=== PATIENT | male | born 1985 | race Caucasian/White ===

== ENCOUNTER 2016-09-27 19:35 | Emergency (ER) | payer MEDICAID ==
[~2016-09-27] VITALS: Ht 180.3 cm; Wt 73.4 kg
[2016-09-27 19:41] VITALS: BP 133/79
[2016-09-27] MEDS ORDERED: IBUPROFEN 200 MG TABLET ONE (20:22)
[2016-09-27] MEDS ORDERED: IBUPROFEN 200 MG TABLET PO ONE (20:30)
[2016-09-27] MEDS ORDERED: AMOXICILLIN 500 MG CAPSULE PO ONE (20:30)
[2016-09-28] MEDS ORDERED: ARIP2TAB PO (03:36)
[2016-09-28] MEDS ORDERED: OXCA150T3 PO (03:36)
== END 2016-09-27 20:47 | disposition home or self-care (01) ==
LOC: ED 20:40
DX: K08.89 Other specified disorders of teeth and supporting structures (principal); F20.9 Schizophrenia, unspecified; J02.9 Acute pharyngitis, unspecified
CPT/HCPCS: 99283

== ENCOUNTER 2016-09-28 00:25 | Observation (INO) | payer MEDICAID ==
[~2016-09-28] VITALS: Ht 180.3 cm; Wt 63.2 kg
[2016-09-28 02:01] LABS: DAU SCREEN DISCLAIMER
[2016-09-28 02:14] LABS: BLOOD UREA NITROGEN 19 mg/dL (7-18)
[2016-09-28 02:19] LABS: ACETAMINOPHEN < 2 mcg/mL (10-30)
[2016-09-28] MEDS ORDERED: OXCA150T3 PO (03:36)
[2016-09-28] MEDS ORDERED: ARIP2TAB PO (03:36)
[2016-09-28] MEDS ORDERED: ACETAMINOPHEN 325 MG TABLET PO PRN ×2 (06:00→16:30)
[2016-09-28] MEDS ORDERED: TEMAZEPAM 15 MG CAPSULE PO PRN (06:00)
[2016-09-28] MEDS ORDERED: LORazepam 1MG TABLET PO PRN ×2 (06:00→16:30)
[2016-09-28 22:15] VITALS: BP 104/62
== END 2016-09-28 22:37 | disposition home or self-care (01) ==
LOC: ED 01:09 → EDIP 03:55 → UNDODISOB 23:45
PROVIDERS: ADMIT Internal Medicine; ATTEND Internal Medicine
DX: R45.851 Suicidal ideations (principal); F31.9 Bipolar disorder, unspecified; F17.210 Nicotine dependence, cigarettes, uncomplicated; F20.9 Schizophrenia, unspecified
CPT/HCPCS: 36415; 80048; 80307; 80329; 82040; 85025; 99285; G0378; G0480

== ENCOUNTER 2016-09-29 10:54 | Inpatient (IN) | payer MEDICAID ==
[~2016-09-29] VITALS: Ht 180.3 cm; Wt 72.4 kg
[~2016-09-29 10:54] MED LIST: ARIP2TAB PO; OXCA150T3 PO
[2016-09-29 11:48] LABS: DAU SCREEN DISCLAIMER
[2016-09-29 12:10] LABS: BLOOD UREA NITROGEN 16 mg/dL (7-18)
[2016-09-29 12:11] LABS: ACETAMINOPHEN < 2 mcg/mL (10-30)
[2016-09-29] MEDS ORDERED: ACETAMINOPHEN 325 MG TABLET PO PRN (13:30)
[2016-09-29] MEDS ORDERED: GUAIFENESIN/DM 200-20MG, 10ML UDC PO PRN (13:30)
[2016-09-29] MEDS ORDERED: ONDANSETRON ODT 4 MG PO PRN (13:30)
[2016-09-29] MEDS ORDERED: ALBUTEROL SULFATE 2.5MG/0.5ML NPPB PRN (13:30)
[2016-09-29] MEDS ORDERED: BISACODYL 10 MG SUPP PR PRN (13:30)
[2016-09-29] MEDS ORDERED: DOCUSATE 100 MG CAPSULE PO PRN (13:30)
[2016-09-29] MEDS ORDERED: NICOTINE 14MG/24 HR PATCH.TD24 ONE (15:13)
[2016-09-29] MEDS: NICOTINE 14MG/24 HR PATCH.TD24 TD SCH (15:17)
[2016-09-30 07:38] VITALS: BP 104/72
[2016-09-30] MEDS: NICOTINE 14MG/24 HR PATCH.TD24 TD SCH (13:30)
[2016-09-30 19:46] VITALS: BP 120/77
== END 2016-09-30 20:05 | DRG 885 ==
LOC: ED 11:39 → EDIP 12:54 → OBSVTOIN 13:03 → 3E 20:50
PROVIDERS: ADMIT Internal Medicine; ATTEND Internal Medicine
DX: F31.9 Bipolar disorder, unspecified (principal); R45.851 Suicidal ideations; F17.210 Nicotine dependence, cigarettes, uncomplicated; F12.90 Cannabis use, unspecified, uncomplicated; Z88.0 Allergy status to penicillin; Z79.899 Other long term (current) drug therapy
CPT/HCPCS: 36415; 80048; 80307; 80329; 82040; 85025; 99285; G0378; G0480

== ENCOUNTER 2016-10-09 11:27 | Observation (INO) | payer MEDICAID ==
[~2016-10-09] VITALS: Ht 182.9 cm; Wt 72.3 kg
[2016-10-09 12:17] LABS: HEMATOCRIT 47.8 % (39.2-51.8); HEMOGLOBIN 15.9 g/dL (13.7-18.0)
[2016-10-09 12:29] LABS: ASPARTATE AMINO TRANSFERASE 22 U/L (15-37); BLOOD UREA NITROGEN 20 mg/dL (7-18)
[2016-10-09 12:32] LABS: ACETAMINOPHEN < 2 mcg/mL (10-30)
[2016-10-09 13:02] LABS: DAU SCREEN DISCLAIMER
[2016-10-09] MEDS ORDERED: NICOTINE 14MG/24 HR PATCH.TD24 ONE (18:26)
[2016-10-09] MEDS ORDERED: ENOXAPARIN 40 MG/0.4 ML ONE (18:27)
[2016-10-09] MEDS: NICOTINE 14MG/24 HR PATCH.TD24 TD SCH (18:30)
[2016-10-09] MEDS: ENOXAPARIN 40 MG/0.4 ML SQ SCH (18:30)
[2016-10-09] MEDS ORDERED: DIPHENHYDRAMINE 50 MG CAPSULE PO PRN (18:30)
[2016-10-09] MEDS ORDERED: ACETAMINOPHEN 325 MG TABLET PO PRN (18:30)
[2016-10-09 19:30] VITALS: BP 122/77
[2016-10-09] MEDS: LORazepam 1MG TABLET PO PRN (20:47)
[2016-10-10 07:38] VITALS: BP 102/66
[2016-10-10] MEDS ORDERED: CALCIUM CARBONATE 500 MG TAB.CHEW PO PRN (09:30)
[2016-10-10] MEDS: LORazepam 1MG TABLET PO PRN (13:26)
[2016-10-10] MEDS ORDERED: ZIPRASIDONE 20 MG INJ IM ONE (14:00)
[2016-10-10] MEDS ORDERED: ZIPRASIDONE 20 MG INJ IM PRN ×2 (16:30→19:00)
[2016-10-10] MEDS ORDERED: DEXTROMETHORPHAN 30 MG/5 ML ORAL SOL PO PRN (16:30)
[2016-10-10] MEDS: NICOTINE 14MG/24 HR PATCH.TD24 TD SCH (17:26)
[2016-10-10] MEDS: ENOXAPARIN 40 MG/0.4 ML SQ SCH (17:27)
[2016-10-10] MEDS ORDERED: FLUPHENAZINE 2.5 MG TABLET PO SCH (21:00)
== END 2016-10-10 19:20 ==
LOC: ED 11:48 → EDIP 14:52 → 3E 19:24
PROVIDERS: ADMIT Internal Medicine; ATTEND Internal Medicine
DX: F29 Unspecified psychosis not due to a substance or known physiological condition (principal); F20.9 Schizophrenia, unspecified; F31.9 Bipolar disorder, unspecified; G47.00 Insomnia, unspecified; R45.851 Suicidal ideations; Z59.0 Homelessness; F17.200 Nicotine dependence, unspecified, uncomplicated
CPT/HCPCS: 36415; 80053; 80307; 80329; 85025; 96372; 99285; G0378; J3486; J1650; G0480

== ENCOUNTER 2016-10-23 22:04 | Emergency (ER) | payer MEDICAID ==
[~2016-10-23] VITALS: Ht 180.3 cm; Wt 72.7 kg
[~2016-10-23 22:04] MED LIST changes: -ARIP2TAB PO; +ARIP2TAB2 PO
[2016-10-23 22:09] VITALS: BP 118/86
== END 2016-10-23 23:19 | disposition home or self-care (01) ==
LOC: ED 22:52
DX: F20.0 Paranoid schizophrenia (principal); F17.200 Nicotine dependence, unspecified, uncomplicated; F15.10 Other stimulant abuse, uncomplicated
CPT/HCPCS: 99284